=== PATIENT | male | born 1955 | race Caucasian/White ===

== ENCOUNTER 2016-10-28 00:15 | Inpatient (IN) | payer BC, OTHER ==
[2016-10-28] VITALS (16 sets, daily range): BP systolic 130–169; BP diastolic 67–86; PULSE 64–91; RESP 12–20; TEMP 98.1–98.4; O2SAT 93–98
[~2016-10-28] VITALS: Ht 180.3 cm; Wt 111.3 kg
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
[2016-10-28] MEDS ORDERED: ALLO300T2 PO (00:41)
[2016-10-28] MEDS ORDERED: COLC1CAP3 PO (00:41)
[2016-10-28] MEDS ORDERED: INDO75CA3 PO (00:41)
--- NOTE | 2016-10-28 01:16 | RADRPT ---
EXAM DATE/TIME: 10/28/2016 00:58 [facility] COMPARISON: No previous studies available for comparison. INDICATIONS : Chest pain. MEDICAL HISTORY : None. SURGICAL HISTORY : None. ENCOUNTER: Initial ACUITY: 1 day PAIN SCORE: 0/10 LOCATION: Bilateral chest FINDINGS: There are multiple right-sided rib fractures laterally with a tiny right-sided apical pneumothorax. S ubcutaneous air present in the right chest wall. There is some hazy opacity in the right lung, possib ly small contusion. There is basilar atelectasis bilaterally. Left lung otherwise clear. CONCLUSION: 1. Multiple right-sided rib fractures with tiny right pneumothorax. Air in right chest wall. Mild rig ht lung contusion versus atelectasis. Conor Mittal MD on October 28, 2016 at 1:14 Board Certified Radiologist. This report was verified electronically.
[2016-10-28] MEDS ORDERED: CHLORHEXIDINE GLUCONATE 2 % 1 PACK (2 CLOTHS) TOP PRN (02:30)
[2016-10-28] MEDS ORDERED: KETOROLAC TROMETHAMINE 30 MG/ML (IVP) VIAL IV PUSH SCH (02:30)
[2016-10-28] MEDS ORDERED: NALOXONE HCL 0.4 MG/ML AMP IV PRN (02:30)
[2016-10-28] MEDS ORDERED: ONDANSETRON HCL 4 MG/2 ML VIAL IV PRN (02:30)
[2016-10-28] MEDS ORDERED: SODIUM CHLORIDE 0.9% FLUSH 5 ML FLUSH IV FLUSH PRN (02:30)
[2016-10-28] MEDS ORDERED: MISCELLANEOUS NURSING INFORMATION XX SCH (02:30)
[2016-10-28] MEDS ORDERED: HYDROmorphone HCL PCA 6 MG/30 ML IV SCH (02:30)
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
[2016-10-28] MEDS: SODIUM CHLOR 0.9% 1000 ML INJ 1,000 ML IV SCH ×2 (03:39→14:11)
[2016-10-28] MEDS: PANTOPRAZOLE SODIUM 40 MG VIAL IV PUSH SCH (03:40)
[2016-10-28] MEDS: SODIUM CHLORIDE 0.9% FLUSH 5 ML FLUSH IV FLUSH SCH ×2 (03:49→19:54)
[2016-10-28] MEDS: CHLORHEXIDINE GLUCONATE 2 % 1 PACK (2 CLOTHS) TOP SCH (04:00)
[2016-10-28] MEDS: METHOCARBAMOL 500 MG TAB PO SCH ×3 (07:15→20:43)
[2016-10-28] MEDS: RESP: ALBUTEROL 2.5 MG/IPRATROPIUM 0.5 MG NEB (SCH) NEB ×3 (07:17→19:13)
[2016-10-28] MEDS: ENOXAPARIN SODIUM 30 MG/0.3 ML SYRINGE SQ SCH ×2 (08:09→20:43)
[2016-10-28] MEDS: LACTULOSE SYRUP 20 GM/30 ML CUP PO SCH (08:10)
[2016-10-28] MEDS: COLCHICINE 0.6 MG TAB PO SCH (08:34)
[2016-10-28] MEDS: INDOMETHACIN 75 MG CONTROLLED RELEASE CAP PO SCH (08:36)
[2016-10-28] MEDS: ALLOPURINOL 300 MG TAB PO SCH (08:37)
[2016-10-28] MEDS: KETOROLAC TROMETHAMINE 30 MG/ML (IVP) VIAL IV PUSH PRN (08:42)
[2016-10-28 08:45] LABS: AUTOMATED NEUTROPHIL # 5.3 TH/MM3 (1.8-7.7); BASOPHIL % 0.5 % (0.0-2.0); EOSINOPHIL % 0.6 % (0.0-4.0); HEMATOCRIT 34.3 % (39.0-51.0); HEMO FLAGS DIFF FINAL; LYMPH % 15.7 % (9.0-44.0); LYMPHOCYTE # 1.2 TH/MM3 (1.0-4.8); MEAN CELL VOLUME 89.6 FL (80.0-100.0); MEAN CORPUSCULAR HGB CONC 34.6 % (32.0-36.0); MONO % 11.4 % (0.0-8.0); NEUT % 71.8 % (16.0-70.0); PLATELET COUNT 103 TH/MM3 (150-450); RED BLOOD COUNT 3.83 MIL/MM3 (4.50-5.90); RED CELL DISTRIBUTION WIDTH 13.4 % (11.6-17.2); WHITE BLOOD COUNT 7.4 TH/MM3 (4.0-11.0)
[2016-10-28] MEDS ORDERED: INDOMETHACIN 75 MG CONTROLLED RELEASE CAP PO SCH (09:00)
[2016-10-28 09:21] LABS: POTASSIUM 3.2 MEQ/L (3.5-5.1)
[2016-10-28 09:36] LABS: BICARBONATE 22.6 MEQ/L (21.0-32.0)
[2016-10-28 09:40] LABS: CALCIUM-PROTEIN CORRECTED 7.9 MG/DL (8.5-10.1); TOTAL BILIRUBIN ADULT 0.8 MG/DL (0.2-1.0)
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
[2016-10-28] MEDS: HYDROmorphone HCL PF 1 MG/ML VIAL IV PRN ×3 (13:15→20:44)
[2016-10-28] MEDS: PCA - TOTAL MG DILAUDID DELIVERED PER SHIFT OTHER SCH (22:00)
[2016-10-29] VITALS (12 sets, daily range): BP systolic 122–155; BP diastolic 62–80; PULSE 77–94; RESP 16–20; TEMP 97.7–98.2; O2SAT 92–99
[2016-10-29] MEDS: SODIUM CHLOR 0.9% 1000 ML INJ 1,000 ML IV SCH (03:20)
[2016-10-29] MEDS: CHLORHEXIDINE GLUCONATE 2 % 1 PACK (2 CLOTHS) TOP SCH (04:00)
[2016-10-29] MEDS: PANTOPRAZOLE SODIUM 40 MG VIAL IV PUSH SCH (04:08)
[2016-10-29] MEDS: HYDROmorphone HCL PF 1 MG/ML VIAL IV PRN ×3 (04:10→11:04)
[2016-10-29 04:28] LABS: AUTOMATED NEUTROPHIL # 6.7 TH/MM3 (1.8-7.7); BASOPHIL % 0.4 % (0.0-2.0); EOSINOPHIL # 0.1 TH/MM3 (0-0.4); EOSINOPHIL % 0.9 % (0.0-4.0); HEMATOCRIT 35.4 % (39.0-51.0); HEMO FLAGS DIFF FINAL; LYMPH % 13.7 % (9.0-44.0); LYMPHOCYTE # 1.2 TH/MM3 (1.0-4.8); MEAN CELL VOLUME 90.1 FL (80.0-100.0); MEAN CORPUSCULAR HEMOGLOBIN 30.9 PG (27.0-34.0); MEAN CORPUSCULAR HGB CONC 34.3 % (32.0-36.0); MONO % 10.9 % (0.0-8.0); NEUT % 74.1 % (16.0-70.0); PLATELET COUNT 105 TH/MM3 (150-450); RED BLOOD COUNT 3.93 MIL/MM3 (4.50-5.90); RED CELL DISTRIBUTION WIDTH 13.5 % (11.6-17.2)
[2016-10-29 04:58] LABS: POTASSIUM 3.9 MEQ/L (3.5-5.1)
[2016-10-29] MEDS: PCA - TOTAL MG DILAUDID DELIVERED PER SHIFT OTHER SCH (05:38)
[2016-10-29] MEDS: METHOCARBAMOL 500 MG TAB PO SCH ×3 (05:42→22:26)
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
[2016-10-29] MEDS: RESP: ALBUTEROL 2.5 MG/IPRATROPIUM 0.5 MG NEB (SCH) NEB ×3 (07:31→20:00)
[2016-10-29] MEDS: LACTULOSE SYRUP 20 GM/30 ML CUP PO SCH (08:26)
[2016-10-29] MEDS: INDOMETHACIN 75 MG CONTROLLED RELEASE CAP PO SCH (08:26)
[2016-10-29] MEDS: ALLOPURINOL 300 MG TAB PO SCH (08:26)
[2016-10-29] MEDS: COLCHICINE 0.6 MG TAB PO SCH (08:26)
[2016-10-29] MEDS: ENOXAPARIN SODIUM 30 MG/0.3 ML SYRINGE SQ SCH ×2 (08:27→22:26)
[2016-10-29] MEDS: SODIUM CHLORIDE 0.9% FLUSH 5 ML FLUSH IV FLUSH SCH ×2 (08:27→22:42)
[2016-10-29] MEDS: KETOROLAC TROMETHAMINE 30 MG/ML (IVP) VIAL IV PUSH PRN (11:04)
[2016-10-29] MEDS: DOCUSATE SODIUM 50 MG/SENNA 8.6 MG TAB PO SCH ×2 (17:33→22:26)
[2016-10-29] MEDS: oxyCODONE/ACETAMINOPHEN 5 MG/325 MG TAB PO PRN ×2 (17:33→22:42)
[2016-10-29] MEDS: KETOROLAC TROMETHAMINE 30 MG/ML (IVP) VIAL IV PUSH SCH ×2 (17:35→23:08)
--- NOTE | 2016-10-29 17:35 | HHI.PR ---
Subjective Subjective Notes Pain controlled. Eating well. Incentive spirometry volume = 1500-2000mL Objective Vitals/I&O Vital Signs Date Time Temp Pulse Resp B/P Pulse Ox O2 Delivery O2 Flow Rate FiO2 10/29/16 12:00 98.2 79 16 128/76 95 10/29/16 10:45 Nasal Cannula 2.00 Labs Laboratory Tests Test 10/29/16 03:55 White Blood Count 9.0 Red Blood Count 3.93 Hemoglobin 12.2 Hematocrit 35.4 Mean Corpuscular Volume 90.1 Mean Corpuscular Hemoglobin 30.9 Mean Corpuscular Hemoglobin 34.3 Concent Red Cell Distribution Width 13.5 Platelet Count 105 Mean Platelet Volume 9.0 Neutrophils (%) (Auto) 74.1 Lymphocytes (%) (Auto) 13.7 Monocytes (%) (Auto) 10.9 Eosinophils (%) (Auto) 0.9 Basophils (%) (Auto) 0.4 Neutrophils # (Auto) 6.7 Lymphocytes # (Auto) 1.2 Monocytes # (Auto) 1.0 Eosinophils # (Auto) 0.1 Basophils # (Auto) 0.0 CBC Comment DIFF FINAL Differential Comment Sodium Level 140 Potassium Level 3.9 Chloride Level 106 Carbon Dioxide Level 26.0 Anion Gap 8 Blood Urea Nitrogen 12 Creatinine 0.92 Estimat Glomerular Filtration 83 Rate Random Glucose 101 Calcium Level 8.3 Radiology Last Impressions Chest X-Ray 10/29/16 0000 Signed Impressions: Service Date/Time: Saturday, October 29, 2016 05:45 - CONCLUSION: No significant change has occurred. Mark Garcia MD Narrative Exam GENERAL: 61-year-old well-nourished, well developed male lying in bed. SKIN: Warm and dry. Multiple abrasions noted to right shoulder, bilateral hands , bilateral knees. HEAD: Atraumatic. Normocephalic. ENT: No nasal bleeding or discharge. Mucous membranes pink and moist. NECK: Trachea midline. No JVD. CARDIOVASCULAR: Regular rate and rhythm. RESPIRATORY: No accessory muscle use. Lungs clear to auscultation. Breath sounds equal bilaterally. GASTROINTESTINAL: Abdomen soft, non-tender, nondistended. + BS. MUSCULOSKELETAL: Extremities without cyanosis, or edema. No obvious deformities. NEUROLOGICAL: Awake and alert. Normal speech. A/P Assessment and Plan INJURIES: RIGHT rib fxs (6 total) Small RIGHT PTX RIGHT lung contusion Diet: Regular, tolerating Pulm: IS, EZPAP, nebs. Encouraged patient use. Pain: Dilaudid, Robaxin. Tylenol. Percocet added. Pain controlled. 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 Activity: OOB. PT ordered. GI: Pepcid Bowel: Lactulose, Jessica-Colace QD DVT: SCDs, Lovenox 30 BID Discontinue IVF. CXR in a.m. Plan of care discussed patient at bedside. Plan to discharge home in 1-2 days when pain is controlled and chest x-ray improves. Geoff Zamora [facility] Oct 29, 2016 17:35
[2016-10-29] MEDS ORDERED: ACETAMINOPHEN 325 MG TAB PO PRN (17:45)
[2016-10-29] MEDS: FAMOTIDINE 20 MG TAB PO SCH (22:26)
[2016-10-30] VITALS (7 sets, daily range): BP systolic 125–143; BP diastolic 70–75; PULSE 76–84; RESP 16–20; TEMP 96.6–99.3; O2SAT 94–98
[2016-10-30] MEDS: KETOROLAC TROMETHAMINE 30 MG/ML (IVP) VIAL IV PUSH SCH ×4 (05:00→23:36)
[2016-10-30] MEDS: METHOCARBAMOL 500 MG TAB PO SCH ×3 (05:00→20:34)
--- NOTE | 2016-10-30 06:36 | RADRPT ---
EXAM DATE/TIME: 10/30/2016 05:14 [facility] COMPARISON: CHEST SINGLE AP, October 29, 2016, 5:45. INDICATIONS : Pain right chest, right rib fractures, evaluate pneumothorax on right MEDICAL HISTORY : right pneumothorax, right rib fractures SURGICAL HISTORY : None. ENCOUNTER: Subsequent ACUITY: 3 days PAIN SCORE: 8/10 LOCATION: Right chest FINDINGS: There is subsegmental atelectasis at the right lung base and multiple right-sided rib fractures are s een. Trace subcutaneous emphysema right lower lateral chest. There is a left second rib fracture. Deg enerative changes of the spine. Right basilar atelectasis and multiple rib fractures with trace subcu taneous emphysema. Tiny right basilar pneumothorax residual suspected. CONCLUSION: No significant change has occurred. Mark Garcia MD on October 30, 2016 at 6:33 Board Certified Radiologist. This report was verified electronically.
[2016-10-30] MEDS: RESP: ALBUTEROL 2.5 MG/IPRATROPIUM 0.5 MG NEB (SCH) NEB ×3 (08:48→19:23)
[2016-10-30] MEDS: oxyCODONE/ACETAMINOPHEN 5 MG/325 MG TAB PO PRN ×2 (10:54→16:08)
[2016-10-30] MEDS: INDOMETHACIN 75 MG CONTROLLED RELEASE CAP PO SCH (10:55)
[2016-10-30] MEDS: ENOXAPARIN SODIUM 30 MG/0.3 ML SYRINGE SQ SCH ×2 (10:55→20:34)
[2016-10-30] MEDS: SODIUM CHLORIDE 0.9% FLUSH 5 ML FLUSH IV FLUSH SCH ×2 (10:55→20:34)
[2016-10-30] MEDS: FAMOTIDINE 20 MG TAB PO SCH ×2 (10:56→20:34)
[2016-10-30] MEDS: LACTULOSE SYRUP 20 GM/30 ML CUP PO SCH (10:56)
[2016-10-30] MEDS: COLCHICINE 0.6 MG TAB PO SCH (10:57)
[2016-10-30] MEDS: DOCUSATE SODIUM 50 MG/SENNA 8.6 MG TAB PO SCH ×2 (10:57→20:34)
[2016-10-30] MEDS: ALLOPURINOL 300 MG TAB PO SCH (10:57)
--- NOTE | 2016-10-30 14:54 | HHI.PR ---
Subjective Subjective Notes Better today. Still painful with movement or coughing. Objective Vitals/I&O Vital Signs Date Time Temp Pulse Resp B/P Pulse Ox O2 Delivery O2 Flow Rate FiO2 10/30/16 13:06 98 21 10/30/16 12:02 97.7 76 16 129/75 10/30/16 08:50 2.00 10/30/16 06:45 Nasal Cannula Labs Laboratory Tests Test 10/28/16 10/29/16 08:30 03:55 Protein Corrected Calcium 7.9 MG/DL Total Bilirubin 0.8 MG/DL Aspartate Amino Transf 43 U/L (AST/SGOT) Alanine Aminotransferase 57 U/L (ALT/SGPT) Alkaline Phosphatase 29 U/L Total Protein 5.6 GM/DL Albumin 3.1 GM/DL White Blood Count 9.0 TH/MM3 Red Blood Count 3.93 MIL/MM3 Hemoglobin 12.2 GM/DL Hematocrit 35.4 % Mean Corpuscular Volume 90.1 FL Mean Corpuscular Hemoglobin 30.9 PG Mean Corpuscular Hemoglobin 34.3 % Concent Red Cell Distribution Width 13.5 % Platelet Count 105 TH/MM3 Mean Platelet Volume 9.0 FL Neutrophils (%) (Auto) 74.1 % Lymphocytes (%) (Auto) 13.7 % Monocytes (%) (Auto) 10.9 % Eosinophils (%) (Auto) 0.9 % Basophils (%) (Auto) 0.4 % Neutrophils # (Auto) 6.7 TH/MM3 Lymphocytes # (Auto) 1.2 TH/MM3 Monocytes # (Auto) 1.0 TH/MM3 Eosinophils # (Auto) 0.1 TH/MM3 Basophils # (Auto) 0.0 TH/MM3 CBC Comment DIFF FINAL Differential Comment Sodium Level 140 MEQ/L Potassium Level 3.9 MEQ/L Chloride Level 106 MEQ/L Carbon Dioxide Level 26.0 MEQ/L Anion Gap 8 MEQ/L Blood Urea Nitrogen 12 MG/DL Creatinine 0.92 MG/DL Estimat Glomerular Filtration 83 ML/MIN Rate Random Glucose 101 MG/DL Calcium Level 8.3 MG/DL Radiology Last Impressions Chest X-Ray 10/29/16 0000 Signed Impressions: Service Date/Time: Saturday, October 29, 2016 05:45 - CONCLUSION: No significant change has occurred. Mark Garcia MD Narrative Exam GENERAL: 61-year-old well-nourished, well developed male lying in bed. SKIN: Warm and dry. Multiple abrasions noted to right shoulder, bilateral hands , bilateral knees. HEAD: Atraumatic. Normocephalic. ENT: No nasal bleeding or discharge. Mucous membranes pink and moist. NECK: Trachea midline. No JVD. CARDIOVASCULAR: Regular rate and rhythm. RESPIRATORY: No accessory muscle use. Lungs clear to auscultation. Breath sounds equal bilaterally. GASTROINTESTINAL: Abdomen soft, non-tender, nondistended. + BS. MUSCULOSKELETAL: Extremities without cyanosis, or edema. No obvious deformities. NEUROLOGICAL: Awake and alert. Normal speech. A/P Assessment and Plan INJURIES: RIGHT rib fxs (6 total) Small RIGHT PTX RIGHT lung contusion Diet: Regular, tolerating Pulm: IS, EZPAP, nebs. Encouraged patient use. Pain: Dilaudid, Robaxin. Tylenol. Percocet. Pain controlled. Activity: OOB. PT evaluating. Got OOB to a chair today. GI: Pepcid Bowel: Lactulose, Jessica-Colace QD DVT: SCDs, Lovenox 30 BID CXR in a.m. Plan of care discussed patient at bedside. Plan to discharge home in a.m. Geoff Zamora Oct 30, 2016 14:54
[2016-10-30] MEDS ORDERED: WALKER WHEELS/F1 MIS (15:35)
[2016-10-31 00:08] VITALS: BP 146/80; PULSE 87; RESP 20; TEMP 98.7; O2SAT 96
[2016-10-31 04:05] VITALS: BP 130/76; PULSE 80; RESP 20; TEMP 98.9; O2SAT 95
[2016-10-31] MEDS: METHOCARBAMOL 500 MG TAB PO SCH ×2 (05:14→13:00)
[2016-10-31] MEDS: KETOROLAC TROMETHAMINE 30 MG/ML (IVP) VIAL IV PUSH SCH ×2 (05:15→13:00)
[2016-10-31 07:58] VITALS: BP 145/80; PULSE 76; RESP 20; TEMP 99.6; O2SAT 95
[2016-10-31] MEDS: ENOXAPARIN SODIUM 30 MG/0.3 ML SYRINGE SQ SCH (08:20)
[2016-10-31] MEDS: ALLOPURINOL 300 MG TAB PO SCH (08:21)
[2016-10-31] MEDS: LACTULOSE SYRUP 20 GM/30 ML CUP PO SCH (08:21)
[2016-10-31] MEDS: DOCUSATE SODIUM 50 MG/SENNA 8.6 MG TAB PO SCH (08:21)
[2016-10-31] MEDS: FAMOTIDINE 20 MG TAB PO SCH (08:21)
[2016-10-31] MEDS: oxyCODONE/ACETAMINOPHEN 5 MG/325 MG TAB PO PRN ×2 (08:21→17:18)
[2016-10-31] MEDS: INDOMETHACIN 75 MG CONTROLLED RELEASE CAP PO SCH (08:22)
[2016-10-31] MEDS: COLCHICINE 0.6 MG TAB PO SCH (08:22)
[2016-10-31 08:59] VITALS: O2SAT 93
[2016-10-31] MEDS: SODIUM CHLORIDE 0.9% FLUSH 5 ML FLUSH IV FLUSH SCH (09:00)
[2016-10-31] MEDS: RESP: ALBUTEROL 2.5 MG/IPRATROPIUM 0.5 MG NEB (SCH) NEB ×2 (09:08→12:52)
[2016-10-31] MEDS ORDERED: OXYC1TAB63 PO (11:42)
[2016-10-31] MEDS ORDERED: METH500T3 PO (11:43)
[2016-10-31 12:00] VITALS: BP 134/74; PULSE 85; RESP 20; TEMP 97.2; O2SAT 95
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
[2016-10-31 16:12] VITALS: BP 146/85; PULSE 89; RESP 14; TEMP 98.7; O2SAT 99
== END 2016-10-31 17:50 | disposition home or self-care (01) | DRG 200 ==
LOC: NEPC 00:15 → NEDA 00:47 → UNDOADMIN 00:47 → NEDH 00:47 → N06A 10-29 10:23 → NEDH 10-29 10:23
PROVIDERS: ADMIT Surgery Trauma Surgery; ATTEND Surgery Trauma Surgery
DX: S27.0XXA Traumatic pneumothorax, initial encounter (principal); S27.321A Contusion of lung, unilateral, initial encounter; S22.41XA Multiple fractures of ribs, right side, initial encounter for closed fracture; K76.0 Fatty (change of) liver, not elsewhere classified; S60.511A Abrasion of right hand, initial encounter; S60.512A Abrasion of left hand, initial encounter; S40.211A Abrasion of right shoulder, initial encounter; S80.212A Abrasion, left knee, initial encounter; S80.211A Abrasion, right knee, initial encounter; M10.9 Gout, unspecified; Z96.643 Presence of artificial hip joint, bilateral; T79.7XXA Traumatic subcutaneous emphysema, initial encounter; V28.0XXA Motorcycle driver injured in noncollision transport accident in nontraffic accident, initial encounter
CPT/HCPCS: 71010; 80048; 80053; 85025; 94150; 94640; 94664; 99285; C9113; J1170; J1650; J1885; J7030